=== PATIENT | male | born 1970 | race Caucasian/White ===

== ENCOUNTER 2017-10-20 16:24 | Emergency (ER) | payer MEDICAID, OTHER ==
[2017-10-20 16:32] VITALS: BP 149/88
[2017-10-20] MEDS ORDERED: AMOX/CLAV 875 MG/125 MG TABLET PO STA (16:57)
[2017-10-20] MEDS ORDERED: BUFFERED LIDOCAINE 10 ML SYRINGE SUBQ STA (16:57)
--- NOTE | 2017-10-20 17:00 | ED Physician Documentation ---
PD HPI HEAD INJURY - Stated complaint Stated Complaint: FACIAL LAC - Chief complaint Chief Complaint: Laceration - History obtained from History obtained from: Patient - History of Present Illness Mechanism of head injury: Other (He is not up-to-date on tetanus and and refuses tetanus. He was making a wood bowl and a piece of wood shattered and kind of stabbed him in the face and he has a laceration with some. No other injuries.) Review of Systems Constitutional: reports: Reviewed and negative Throat: reports: Reviewed and negative Cardiac: reports: Reviewed and negative PD PAST MEDICAL HISTORY - Past Medical History Past Medical History: No - Past Surgical History Past Surgical History: Yes Ortho: Other - Present Medications Home Medications: Ambulatory Orders Medication Instructions Recorded Confirmed Amox/Clav 875/125 [Augmentin] 1 each PO Q12H #14 tablet 10/20/17 - Allergies Allergies/Adverse Reactions: Allergies Allergy/AdvReac Type Severity Reaction Status Date / Time No Known Drug Allergies Allergy Verified 10/20/17 17:04 - Social History Does the pt smoke?: No Smoking Status: Never smoker Does the pt drink ETOH?: Yes ETOH Use: Liquor Does the pt have substance abuse?: No - Immunizations Immunizations are current?: Yes - POLST Patient has POLST: No PD ED PE NORMAL - Vitals Vital signs reviewed: Yes - General General: Alert and oriented X 3, No acute distress - HEENT HEENT: Other (On the right upper lip there is a through and through laceration just above the vermilion border and 8. #7 are slightly loose with overlying gingival laceration but not very loose.) - Neuro Neuro: Alert and oriented X 3, Normal speech - Psych Psych: Normal mood, Normal affect Results - Vitals Vitals: Vital Signs - 24 hr 10/20/17 16:30 Temperature 36.2 C L Heart Rate 76 Respiratory 17 Rate Blood Pressure 149/88 H O2 Saturation 98 Oxygen O2 Source Room air Procedures - Laceration (location) lip through and through Length in cm: 1 Wound type: Linear Neurovascular status: Sensory intact Anesthesia: Lidocaine 1%, With bicarb Wound Preparation: Irrigated copiously NS Deep layer closure: Vicryl, size #-0 - enter number (5-0), # sutures - enter number (2) Skin layer closure: Nylon, Interrupted, Size #-0 - enter number (5-0), Sutures - enter # (3) Other: Patient tolerated well, No complications, Neurovascular intact Complexity: Simple Departure - Departure Disposition: 01 Home, Self Care Clinical Impression: Facial laceration Qualifiers: Encounter type: initial encounter Qualified Code(s): S01.81XA - Laceration without foreign body of other part of head, initial encounter Dental injury Qualifiers: Encounter type: initial encounter Qualified Code(s): S09.93XA - Unspecified injury of face, initial encounter Condition: Good Record reviewed to determine appropriate education?: Yes Instructions: Trauma Dental, ED Laceration Facial Sutr Tape Prescriptions: Amox/Clav 875/125 [Augmentin] 1 each PO Q12H #14 tablet Comments: Follow-up with your dentist regarding your loose teeth, liquid diet until then. Come back for any signs of infection which would include: Redness, swelling, drainage, increased pain, or fevers. Follow-up with your physician in 6 days for suture removal. Your blood pressure was elevated today on check into the emergency department. This does not mean that you have hypertension, it is a common phenomenon to come to the emergency department and have elevated blood pressure. I recommend that you see your primary care physician within the week to have it rechecked when you are feeling better.
== END 2017-10-20 17:28 | disposition home or self-care (01) ==
LOC: ED 16:24
DX: S01.511A Laceration without foreign body of lip, initial encounter (principal); S01.512A Laceration without foreign body of oral cavity, initial encounter; S09.8XXA Other specified injuries of head, initial encounter; W20.8XXA Other cause of strike by thrown, projected or falling object, initial encounter; Y93.89 Activity, other specified; R03.0 Elevated blood-pressure reading, without diagnosis of hypertension
CPT/HCPCS: 12011; 99283; A9270

== ENCOUNTER 2018-07-16 15:26 | Outpatient (CLI) | payer MEDICAID ==
--- NOTE | 2018-07-16 22:37 | XRAY Report ---
Reason: SHOULDER JOINT PAIN, LEFT Procedure Date: 07/16/2018 Accession Number: [id number] / [id number] Procedure: XRS - Shoulder 2 View LT CPT Code: FULL RESULT: EXAM: LEFT SHOULDER RADIOGRAPHY EXAM DATE: 07/16/2018 03:43 PM. CLINICAL HISTORY: SHOULDER JOINT PAIN, LEFT. COMPARISON: None. TECHNIQUE: 3 views. FINDINGS: Bones: Normal. No fracture or bone lesion. Joints: There is joint space narrowing and periarticular irregularity at the left acromioclavicular joint. Glenohumeral joint spacing and alignment are within normal limits. Soft tissues: The visualized hemithorax is unremarkable. No soft tissue swelling. IMPRESSION: 1. No evidence of fracture or dislocation. 2. There are mild to moderate degenerative changes at the left acromioclavicular joint. RADIA
== END 2018-07-16 15:27 | disposition home or self-care (01) ==
LOC: DI.S 15:26
PROVIDERS: ATTEND Internal Medicine
DX: M19.012 Primary osteoarthritis, left shoulder (principal)

== ENCOUNTER 2018-11-11 12:28 | Emergency (ER) | payer MEDICAID, OTHER ==
--- NOTE | 2018-11-11 14:09 | ED Physician Documentation ---
PD HPI UPPER EXT INJURY - Stated complaint Stated Complaint: RT ARM INJ/FELL OFF LADDER - Chief complaint Chief Complaint: Trauma Ext - History obtained from History obtained from: Patient, Family - History of Present Illness Location: Right, Arm Type of injury: Fall Where injury occurred: A house / apartment Timing - onset: Today Timing - duration: Minutes Timing - details: Abrupt onset, Still present Improved by: Rest, Immobilization Worsened by: Moving, Palpating Associated symptoms: No: Weakness, Numbness Contributing factors: No: Anticoagulated Similar symptoms before: Has not had sx before Recently seen: Not recently seen - Additonal information Additional information: Previously healthy 48-year-old male was putting together a spiral staircase when the staircase popped out from underneath him and he grabbed onto the landing to catch himself with his right arm and he felt a pull and pop in his right arm and he let go and fell. He was up about 3 steps when he fell and has not otherwise injured himself. He has now a deformity to the distal biceps and notes that it seems like he is able to move his arm okay with this. He has some pain associated with it but not horrible. 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 Review of Systems Constitutional: denies: Fever Cardiac: denies: Chest pain / pressure Respiratory: denies: Dyspnea, Cough GI: denies: Vomiting Musculoskeletal: reports: Extremity pain. denies: Neck pain, Back pain Neurologic: denies: Generalized weakness, Focal weakness, Numbness PD PAST MEDICAL HISTORY - Past Medical History Past Medical History: No - Past Surgical History Past Surgical History: Yes Ortho: Other - Present Medications Home Medications: Ambulatory Orders Medication Instructions Recorded Confirmed RX: Ibuprofen 11/11/18 - Allergies Allergies/Adverse Reactions: Allergies Allergy/AdvReac Type Severity Reaction Status Date / Time No Known Drug Allergies Allergy Verified 11/11/18 12:56 - Social History Does the pt smoke?: No Smoking Status: Never smoker Does the pt drink ETOH?: Yes Does the pt have substance abuse?: No - Immunizations Immunizations are current?: No Immunizations: TDAP >10years/unknown - POLST Patient has POLST: No PD ED PE NORMAL - General General: Alert and oriented X 3, No acute distress, Well developed/nourished - HEENT HEENT: Atraumatic, PERRL, EOMI - Respiratory Respiratory: No respiratory distress - Derm Derm: Normal color, Warm and dry, No rash - Extremities Extremities: Other (There is deformity to the distal arm consistent with a bicpes tendon rupture. The patient is able to flex against force with mild pain and he is able to move the forearm through a ROM without difficulty. Distal n/v is intact. There is an abrasion to the right forearm over the volar surface,. ) - Neuro Neuro: Alert and oriented X 3, director of medical services 2-12 intact, No motor deficit, No sensory deficit, Normal speech Eye Opening: Spontaneous Motor: Obeys Commands Verbal: Oriented GCS Score: 15 - Psych Psych: Normal mood, Normal affect Results - Vitals Vitals: Vital Signs - 24 hr 11/11/18 11/11/18 12:52 14:32 Temperature 36.1 C L Heart Rate 54 L 86 Respiratory 16 16 Rate Blood Pressure 112/82 H 111/72 O2 Saturation 100 99 Oxygen O2 Source Room air PD MEDICAL DECISION MAKING - ED course Complexity details: reviewed old records, considered differential, d/w patient, d/w family ED course: 48-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 He has cosmetic deformity consistent with the rupture. Dr. Cely Borges is consulted in the case and recommends splinting and follow-up in the clinic for consideration of surgery. Departure - Departure Disposition: 01 Home, Self Care Clinical Impression: Biceps tendon rupture, traumatic Condition: Stable Instructions: Biceps Tendonitis Distal Follow-Up: Halle Shook MD [Provider Admit Priv/Credential] - Discharge Date/Time: 11/11/18 14:32
[2018-11-11 14:32] VITALS: BP 111/72
== END 2018-11-11 14:32 | disposition home or self-care (01) ==
LOC: ED 12:28
DX: S46.211A Strain of muscle, fascia and tendon of other parts of biceps, right arm, initial encounter (principal); S50.811A Abrasion of right forearm, initial encounter; W17.89XA Other fall from one level to another, initial encounter; Y93.H3 Activity, building and construction; Y92.039 Unspecified place in apartment as the place of occurrence of the external cause
CPT/HCPCS: 99283

== ENCOUNTER 2018-11-19 06:06 | Day surgery (SDC) | payer OTHER ==
[2018-11-19] MEDS ORDERED: ceFAZolin 2 GM/50 ML 2 GM/50 ML BAG IV ONE (06:13)
[2018-11-19] MEDS ORDERED: LACTATED RINGERS 1,000 ML IV ONE (06:37)
[2018-11-19] MEDS ORDERED: BUPIVACAINE 0.25%-EPI 1:200000 PF 30 ML VIAL ONE (07:12)
--- NOTE | 2018-11-19 07:18 | ANESTHESIA ---
Pre-Anesthesia VS, & Labs - Diagnosis Right biceps rupture - Procedure Right biceps /tendon repair Vital Signs: Temp Pulse Resp BP Pulse Ox 36.6 C 64 18 140/87 H 100 11/19/18 06:20 11/19/18 06:20 11/19/18 06:20 11/19/18 06:20 11/19/18 06:20 Height 6 ft 2 in Weight (kg) 123.1 kg Body Mass Index 34.0 - NPO >8 hours Home Medications and Allergies Home Medications: Ambulatory Orders Acetaminophen [Tylenol] 650 mg PO Q6H PRN 11/19/18 Acetaminophen [Tylenol] 650 mg PO Q6H PRN 11/19/18 Allergies/Adverse Reactions: Allergies Allergy/AdvReac Type Severity Reaction Status Date / Time No Known Drug Allergies Allergy Verified 11/11/18 12:56 Anes History & Medical History - Anesthetic History Anesthesia Complications: reports: No previous complications Family history of Anesthesia Complications: Denies Family history of Malignant Hyperthermia: Denies - Medical History Cardiovascular: reports: None Pulmonary: reports: None Gastrointestinal: reports: None Urinary: reports: None Neuro: reports: None Musculoskeletal: reports: Chronic back pain Endocrine/Autoimmune: reports: None Blood Disorders: reports: None Skin: reports: None Smoking Status: Former smoker Psychosocial: reports: No issues indicated - Surgical History General: Appendectomy Eyes Ears Nose Throat (EENT): Tonsil/Adenoidectomy Orthopedic: Other Exam General: Alert Dental: WNL Mouth Opening: Greater than 4 Fingerbreadths Neck Mobility: Normal Mallampati classification: I Thyromental Distance: greater than 6 cm Respiratory: Lungs clear Cardiovascular: Regular rate Neurological: Normal speech Mental/Cognitive Status: Alert/Oriented X3 Cognitive Status: Within normal limits Plan Anesthesia Type: General Consent for Procedure(s) Verified and Reviewed: Yes Code Status: Attempt Resuscitation ASA classification: 2-Mild systemic disease Is this case an emergency?: No
[2018-11-19] MEDS ORDERED: BUPIVACAINE 0.25%-EPI 1:200000 PF 30 ML VIAL SUBQ ONE (08:14)
[2018-11-19] MEDS ORDERED: DEXAMETHASONE 4 MG/ML VIAL IVP ONE (08:18)
[2018-11-19] MEDS ORDERED: ONDANSETRON 4 MG/2 ML VIAL IVP ONE (08:18)
[2018-11-19] MEDS ORDERED: PROPOFOL 200 MG/20 ML VIAL IVP ONE (08:18)
[2018-11-19] MEDS ORDERED: fentaNYL 250 MCG/5 ML VIAL IVP ONE (08:18)
[2018-11-19] MEDS ORDERED: NEOSTIGMINE 1 MG/1 ML 10 ML MDV IVP ONE (08:18)
[2018-11-19] MEDS ORDERED: ROCURONIUM 50 MG/5 ML VIAL IVP ONE (08:18)
[2018-11-19] MEDS ORDERED: LIDOCAINE-MPF 2% 5 ML VIAL IM ONE (08:18)
[2018-11-19] MEDS ORDERED: ACETAMINOPHEN 1,000 MG/100 ML 100 ML IV ONE (08:18)
[2018-11-19] MEDS ORDERED: MIDAZOLAM 2 MG/2 ML VIAL IVP ONE (08:18)
[2018-11-19] MEDS ORDERED: GLYCOPYRROLATE 1 MG/5 ML VIAL IVP ONE (08:18)
[2018-11-19] MEDS ORDERED: ONDANSETRON 4 MG/2 ML VIAL IVP PRN (09:26)
[2018-11-19] MEDS ORDERED: oxyCODONE 5 MG TABLET PO PRN (09:26)
--- NOTE | 2018-11-19 09:39 | IMMEDIATE POSTOPERATIVE NOTE ---
Immediate Postoperative Note - Procedure Note Procedure Date: 11/19/18 Pre-Op Diagnosis: RIGHT DISTAL BICEPS AVULSION Procedure: RIGHT DISTAL BICEPS DEBRIDEMENT AND REPAIR Post-Op Diagnosis: SAME Primary Surgeon: Elvira CARPENTER MD Health Unit Clerk: NATHALIA Anesthesia Type: General LMA, Local Findings: ABOVE Complications: No complications Estimated Blood Loss (in cc): 25 Specimens and Cultures: ABOVE Plan of Care: PT TOLERATED PROCEDURE WELL. REMAINS NVID HAND /WRIST POST OP. TRANSFERRED TO IN STABLE CONDITION. WILL FOLLOW STD POST OP DISTAL BICEPS REPAIR PROTOCOL F/U 10-14 DAYS ORTHO OFFICE OR SOONER PRN
[2018-11-19] MEDS ORDERED: ONDANSETRON 4 MG/2 ML VIAL ONE (09:46)
[2018-11-19] MEDS ORDERED: HYDROmorphone 0.5 MG/0.5 ML SYRINGE ONE (09:48)
[2018-11-19] MEDS ORDERED: oxyCODONE 5 MG TABLET ONE (10:13)
[2018-11-19 11:22] VITALS: BP 132/75
--- NOTE | 2018-11-20 10:44 | OPERATIVE REPORT ---
DATE OF SERVICE: 11/19/2018 Physician: Kris Ambrocio MD SURGEON: Kris Ambrocio MD. POSTIE: None. ANESTHESIA PROVIDER: Jonh Sanchez CRNA. ANESTHESIA TYPE: General anesthesia LMA, as well as 30 mL 0.25% Marcaine with epinephrine. ESTIMATED BLOOD LOSS: Less than 25 mL. TOURNIQUET TIME: 42 minutes at 250 mmHg. FLUIDS: 800 mL lactated Ringer's. ORTHOPEDIC IMPLANTS: #5 FiberWire [employer], as well as [employer] biceps button titanium implant. 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 This was found by history and exam and confirmed by MRI. He was indicated for operative treatment. Please see risks, benefits, alternatives previously reviewed with the patient and the patient's in the clinic. This is again highlighted in the preoperative care unit. His questions are answered, he verbalizes understanding of the above and verbalizes the wish to proceed with operative treatment. Informed consent was given. PROCEDURE: On 11/19/2018, patient is identified in the preoperative care unit. He identifies his right elbow as the operative site; this is signed by the operating surgeon. Patient received preoperative weight-based IV antibiotics. He is brought to the operating room. General anesthesia is administered. He is placed in an anatomically comfortable and safe position, with the head, neck and extremities protected to avoid peripheral nerve stretch or compression. Patient's right upper extremity has a well-padded tourniquet placed high on the right arm, taking care to avoid encumbrance of the axilla. Patient's antecubital crease region and just distal to that is shaved mechanically, and then the right upper extremity is pre-scrubbed with chlorhexidine solution, and then prepped and draped in the usual sterile fashion. At this time, surgical pause identifies right distal biceps and right elbow as the operative site. At this point, Esmarch bandage is used to exsanguinate the limb, tourniquet is inflated, though deflated prior to closure. At this point, an incision is made distal to the antecubital crease, not crossing the crease. This is through the skin, and then spreading dissection is carried out. The lateral antebrachial cutaneous nerve is identified and protected and then spreading dissection carried out down towards the bicipital tuberosity of the radius. There is a good tract from proximal to distal, which makes this relatively easy to find, though there are very small bridging veins, which are cauterized appropriately. At this point, with supination and placement of small Hohmann levers, the bare area of the donor site of the bicipital tuberosity of the radius is identified. This is cleaned up, and then retractors are removed, and then attention is directed towards finding the proximal extent of the injury and the distal aspect of the biceps. At this point, blunt finger dissection is carried out proximally, and then hematoma is entered and evacuated, and then the distal biceps tendon is identified and delivered through the wound. The distal end of it is debrided and noted to be quite expanded, with some fibrinous tissue. This is sharply debrided and then ultimately sized to a size 8 mm. At this point, a #5 FiberWire is whip-stitched from distal to proximal, and then again distal, to achieve excellent capture of the distal biceps tendon. At this point, a biceps button is placed, such that it may be ultimately toggled once passed through the radius. This is set aside, and then attention is directed towards the bicipital tuberosity of the radius, again with appropriate retraction and protection of bridging veins and adjacent nerve. At this point, supination and appropriate trajectory of a spade-tipped guidewire, the first cortex is entered at initial proximal third of the bicipital tuberosity of the radius, though this is corrected to make the guide pin in the mid section of the bicipital tuberosity of the radius. Once the first cortex is entered, then repeat fluoroscopic image confirms improved position of the guide pin, and then the guidepin is brought just through the second cortex but not further. At this point, the proximal aspect is reamed to 8 mm, and this is copiously irrigated and evacuated of bony debris meticulously. At this point, the edges of the socket are rongeured, and the guide pin had been removed. At this point, the biceps is placed through the appropriate trajectory, so as to not tent any of the neurovascular structures, and then directly down to the biceps tuberosity. The titanium button is placed into the socket and then through the second cortex, pushed using the blunt end of the guide pin, it is allowed to toggle immediately on the second cortex, and then the biceps is toggled into place, alternatively pulling on each end of the FiberWire and flexing the elbow. Biceps is seated to approximately 8 to 10 mm until it stops, and then an arthroscopic knot pusher is used to tie a surgeon's knot and then reverse half hitches. Suture limbs are cut, the biceps is well fixed into this socket with range of motion of the elbow and good stability of the construct. At this point, the wound is copiously irrigated. The tourniquet is deflated. There is noted to be good hemostasis, and then repeat copious irrigation is performed, and then the skin is closed in a layered fashion using 0 Vicryl, 2-0 Vicryl, and then interrupted nylon suture. Skin is washed and dried, local anesthetic is infused; Xeroform dressing is applied, dry sterile dressing, and then Sof-Rol with the elbow at 90 degrees. Care is taken to avoid significant pressure on the antecubital crease. A Sof-Rol is placed from the hand all the way up to the arm, and a bulky Ash splint is placed with the elbow at 90 degrees and the forearm in neutral. Patient is placed in a sling. Patient tolerated the procedure well. Instrument and sponge counts are correct. Patient is transferred to recovery room in stable condition. The patient will follow standard postoperative right distal biceps debridement repair protocol. There are no intraprocedural complications. He will follow up in 10-14 days, or sooner on an as-needed basis, and notify us problems, questions, or worsening should arise. This is reviewed with the patient preoperatively and the patient's postoperatively. Postoperatively, patient's was contacted in the waiting room, case was discussed, fluoroscopic images are reviewed. PREOPERATIVE DIAGNOSIS: Right distal biceps rupture. POSTOPERATIVE DIAGNOSIS: Right distal biceps rupture. PROCEDURE: Right distal biceps debridement, repair. ADDITIONAL PROCEDURE: Right elbow three views mini C-arm fluoroscopic image interpretation. RADIOGRAPHIC INDICATIONS: Evaluate wire placement and ultimately implant and socket placement in the distal biceps repair. FINDINGS: Radiographic findings demonstrate multiple views of an elbow with pronation and supination demonstrating radiolucency consistent with a drilled socket in the bicipital tuberosity of the radius, with correlating implant consistent with metallic button on the opposite side of the radius. There is an image of a guidepin, which is the initial iteration of the guide pin, at the junction of the middle and proximal third of the bicipital tuberosity of the radius. RADIOGRAPHIC IMPRESSION: As above. TD: 11/20/2018 09:04 MTDD
== END 2018-11-19 06:07 | disposition home or self-care (01) ==
LOC: SDS 06:06
PROVIDERS: ATTEND Orthopaedic Surgery Sports Medicine
PROC: 0LM30ZZ Reattachment of Right Upper Arm Tendon, Open Approach (ICD-10-PCS; principal; 2018-11-19 07:30)
DX: S46.211A Strain of muscle, fascia and tendon of other parts of biceps, right arm, initial encounter (principal); X50.1XXA Overexertion from prolonged static or awkward postures, initial encounter; Y93.H3 Activity, building and construction; Y92.61 Building [any] under construction as the place of occurrence of the external cause; Y99.0 Civilian activity done for income or pay; F17.200 Nicotine dependence, unspecified, uncomplicated; G89.29 Other chronic pain; M54.5 Low back pain; Z72.89 Other problems related to lifestyle
CPT/HCPCS: 24342; A9270; C1713; J0131; J0690; J1170; J3010; J7120

== ENCOUNTER 2019-06-07 15:56 | Emergency (ER) | payer OTHER ==
[2019-06-07 16:02] VITALS: BP 161/92
[2019-06-07] MEDS ORDERED: TETANUS/DIPHTHERIA/PERTUSSIS 0.5 ML SYRINGE IM ONE (16:07)
[2019-06-07] MEDS ORDERED: LIDOCAINE 1%-EPI 1:100000 20 ML MDV SUBQ STA (16:07)
[2019-06-07] MEDS ORDERED: BACITRACIN OINT TOP STA (16:43)
--- NOTE | 2019-06-07 16:45 | ED Physician Documentation ---
PD HPI UPPER EXT INJURY - Stated complaint Stated Complaint: L HAND LAC - Chief complaint Chief Complaint: Laceration - History obtained from History obtained from: Patient - History of Present Illness Location: Left, Finger (index and middle) Type of injury: Other (table saw injury) Where injury occurred: Home Timing - onset: How many minutes ago (30) - Additonal information Additional information: The patient is a 49-year-old male who cut his left index and middle fingers on a table saw at home about 30 minutes prior to arrival. He is right-hand dominant. His last tetanus booster was more than 10 years ago. Review of Systems Skin: reports: Laceration (s) (Left index and middle fingers.) Musculoskeletal: reports: Extremity pain (Left index and middle fingers.) Neurologic: denies: Focal weakness, Numbness PD PAST MEDICAL HISTORY - Past Medical History Cardiovascular: None Respiratory: None Neuro: None Endocrine/Autoimmune: None GI: None : None HEENT: None Psych: None Musculoskeletal: Chronic back pain Derm: None - Past Surgical History Past Surgical History: Yes General: Appendectomy Ortho: Other HEENT: Tonsil/Adenoidectomy - Present Medications Home Medications: Ambulatory Orders Medication Instructions Recorded Confirmed Acetaminophen [Tylenol] 650 mg PO Q6H PRN 11/19/18 11/19/18 Hydrocodone/Acetaminophen 1 - 2 each PO Q6H PRN #20 tablet 06/07/19 [Hydrocodon-Acetaminophen 5-325] - Allergies Allergies/Adverse Reactions: Allergies Allergy/AdvReac Type Severity Reaction Status Date / Time No Known Drug Allergies Allergy Verified 11/11/18 12:56 - Social History Does the pt smoke?: No Smoking Status: Never smoker Does the pt drink ETOH?: Yes Does the pt have substance abuse?: No - Immunizations Immunizations are current?: No Immunizations: TDAP >10years/unknown - POLST Patient has POLST: No PD ED PE NORMAL - Vitals Vital signs reviewed: Yes (Hypertensive) - General General: Alert and oriented X 3, Well developed/nourished - HEENT HEENT: Atraumatic - Respiratory Respiratory: No respiratory distress - Derm Derm: No rash - Extremities Extremities: Other (There is a 1 cm laceration at the tip of the left index finger. There is a 2 cm laceration on the volar tip of the left middle finger, with evulsion of the skin from the tip of the finger. There is no involvement of the nailbed, and no exposure of the bony tuft of the fingers. He has full flexion and extension at the DIP, PIP, and MCP joints. Distal neurovascular is intact.) Results - Vitals Vitals: Vital Signs - 24 hr 06/07/19 15:59 Temperature 36.5 C Heart Rate 63 Respiratory 14 Rate Blood Pressure 161/92 H O2 Saturation 100 Oxygen O2 Source Room air Procedures - Laceration (location) index finger Length in cm: 1 Wound type: Linear Neurovascular status: Sensory intact, Motor intact, Vascular intact Anesthesia: Lidocaine 1% with epi Wound Preparation: Hibiclens, Irrigated copiously NS, Wound explored, To the base. No: FB identified Skin layer closure: Nylon, Interrupted, Size #-0 - enter number (5), Sutures - enter # (2) Other: Patient tolerated well, No complications, Neurovascular intact, Dressing applied, Tetanus booster given Complexity: Simple left middle finger Length in cm: 2 Wound type: Irregular, Into subcut fat Neurovascular status: Sensory intact, Motor intact, Vascular intact Anesthesia: Lidocaine 1% with epi Wound Preparation: Hibiclens, Irrigated copiously NS, Wound explored, To the base. No: FB identified Skin layer closure: Nylon, Interrupted, Size #-0 - enter number (5), Sutures - enter # (2) Other: Patient tolerated well, No complications, Neurovascular intact, Dressing applied, Tetanus booster given Complexity: Simple PD MEDICAL DECISION MAKING - ED course Complexity details: re-evaluated patient, considered differential, d/w patient, d/w family ED course: The patient's presentation is significant for table saw injuries to the tips of his left index and middle fingers, with avulsion of the skin surface from the tip of the left middle finger. There is no clinical evidence of bony involvement. The wounds were thoroughly cleaned after local anesthetic with 1% lidocaine. The wound of the index finger was repaired with 5-0 nylon simple sutures. The wound of the middle finger was partially repaired with 5-0 nylon simple sutures. The avulsed portion was not amenable to suture repair. Antibiotic ointment, nonadhesive dressing, and tube gauze was applied. Tetanus booster was administered. I discussed with the patient and his the expected course of injury, appropriate wound care, timing for suture removal, as well as potentially worrisome signs or symptoms that should prompt reevaluation in the emergency department. Departure - Departure Disposition: 01 Home, Self Care Clinical Impression: Finger laceration Qualifiers: Encounter type: initial encounter Finger: middle finger Damage to nail status: without damage Foreign body presence: without foreign body Laterality: left Qualified Code(s): S61.213A - Laceration without foreign body of left middle finger without damage to nail, initial encounter Condition: Stable Instructions: ED Laceration Hand Follow-Up: Boston Montero MD [Credentialed Staff Provider] - Prescriptions: Hydrocodone/Acetaminophen [Hydrocodon-Acetaminophen 5-325] 1 - 2 each PO Q6H PRN #20 tablet PRN Reason: pain Comments: Keep your left hand elevated as much the time as possible. You can use ibuprofen, up to 800 mg 3 times daily for anti-inflammatory effect. He can use Vicodin as prescribed if needed for pain. Change the wound dressing daily, and apply new antibiotic ointment. Follow-up for suture removal in about 12-14 days. Return to the emergency department if any sign of infection, or otherwise worsening symptoms Discharge Date/Time: 06/07/19 16:54
== END 2019-06-07 16:54 | disposition home or self-care (01) ==
LOC: ED 15:56
DX: S61.211A Laceration without foreign body of left index finger without damage to nail, initial encounter (principal); S61.213A Laceration without foreign body of left middle finger without damage to nail, initial encounter; W31.2XXA Contact with powered woodworking and forming machines, initial encounter; Y93.89 Activity, other specified; Y92.009 Unspecified place in unspecified non-institutional (private) residence as the place of occurrence of the external cause; Z23 Encounter for immunization
CPT/HCPCS: 12002; 90471

== ENCOUNTER 2021-04-27 11:18 | Outpatient (CLI) | payer BC ==
--- NOTE | 2021-04-27 13:39 | XRAY Report ---
PROCEDURE: Cervical Spine 2 View INDICATIONS: NECK PX CHRONIC TECHNIQUE: 3 view(s) of the cervical spine were acquired. COMPARISON: None. FINDINGS: Bones: No fractures or dislocations to the T1 level. The lateral masses of C1 appear intact on the odontoid view. No suspicious bony lesions. Mild cervical spondylosis with bilateral cervical facet arthropathy. Soft tissues: No prevertebral soft tissue swelling. IMPRESSION: Mild cervical spondylosis. No evidence acute bony abnormality of the cervical spine. If clinical suspicion and/or symptoms persist, further assessment with repeat plain films or advanced imaging (e.g., CT, MRI, or bone scan) may be helpful for further assessment. Reviewed by: Keo Espino MD on 04/27/2021 1:38 PM PDT Approved by: Keo Espino MD on 04/27/2021 1:38 PM PDT Station ID: [id number]
--- NOTE | 2021-04-27 13:42 | XRAY Report ---
PROCEDURE: Knee 3 View LT INDICATIONS: KNEE PX CHRONIC TECHNIQUE: 3 views of the left knee(s) were acquired. COMPARISON: None. FINDINGS: Bones: No fractures or dislocations. No suspicious bony lesions. Mild degenerative osteophytes. Mi ld joint space loss. Soft tissues: Moderate joint effusion. No suspicious soft tissue calcifications. IMPRESSION: Mild degenerative arthritis. Knee joint effusion. No evidence acute bony abnormality of the left knee. If clinical suspicion and/or symptoms persist, further assessment with repeat plain films or advanced imaging (e.g., CT, MRI, or bone scan) may be helpful for further assessment. Reviewed by: Keo Espino MD on 04/27/2021 1:40 PM PDT Approved by: Keo Espino MD on 04/27/2021 1:40 PM PDT Station ID: [id number]
== END 2021-04-27 11:19 | disposition home or self-care (01) ==
LOC: DI.S 11:18
PROVIDERS: ATTEND Physician Assistant
DX: M47.812 Spondylosis without myelopathy or radiculopathy, cervical region (principal); M17.12 Unilateral primary osteoarthritis, left knee; M25.462 Effusion, left knee

== ENCOUNTER 2023-01-09 07:32 | Outpatient (CLI) | payer BC ==
[2023-01-09 14:24] LABS: BASOPHILS % (AUTO) 0.2 %; EOSINOPHILS # (AUTO) 0.1 10^3/uL (0.0-0.7); EOSINOPHILS % (AUTO) 2.7 %; HCT - HEMATOCRIT 44.5 % (42.0-52.0); HGB - HEMOGLOBIN 14.3 g/dL (14.0-18.0); LYMPHOCYTES # (AUTO) 1.6 10^3/uL (1.5-3.5); LYMPHOCYTES % (AUTO) 38.3 %; MEAN CORPUSCULAR HEMOGLOBIN 30.5 pg (27.0-31.0); MEAN CORPUSCULAR HGB CONC 32.1 g/dL (32.0-36.0); MEAN CORPUSCULAR VOLUME 94.9 fL (80.0-94.0); MEAN PLATELET VOLUME 10.1 fL (7.4-11.4); MONOCYTES # (AUTO) 0.4 10^3/uL (0.0-1.0); MONOCYTES % (AUTO) 9.1 %; NEUTROPHILS % (AUTO) 49.5 %; PLT - PLATELET COUNT 233 10^3/uL (130-450); RED BLOOD COUNT 4.69 10^6/uL (4.70-6.10); RED CELL DISTRIBUTION WIDTH 13.4 % (12.0-15.0); WHITE BLOOD COUNT 4.1 x10^3/uL (4.8-10.8)
[2023-01-09 14:52] LABS: THYROID STIMULATING HORMONE 2.18 uIU/mL (0.34-5.60)
[2023-01-09 15:04] LABS: ALBUMIN 4.3 g/dL (3.2-5.5); ALBUMIN/GLOBULIN RATIO 1.5 (1.0-2.2); ALKALINE PHOSPHATASE 43 IU/L (42-121); ALT ALANINE AMINOTRANSFERASE 22 IU/L (10-60); AST ASPARTATE AMINOTRANSFERASE 22 IU/L (10-42); BILIRUBIN,TOTAL 0.8 mg/dL (0.2-1.0); BUN - BLOOD UREA NITROGEN 19 mg/dL (6-20); CALCIUM 9.5 mg/dL (8.5-10.3); CARBON DIOXIDE - CO2 31 mmol/L (21-32); CHLORIDE 106 mmol/L (101-111); CHOL/HDL RATIO 3.8 (<5.0); CHOLESTEROL 261 mg/dL; CREATININE 1.1 mg/dL (0.6-1.2); GFR - MDRD 71 (>89); GLUCOSE 91 mg/dL (70-100); HDL CHOLESTEROL 68 mg/dL; LDL CHOLESTEROL,CALCULATED 176 mg/dL; LDL/HDL RATIO 2.6 (<3.6); POTASSIUM 4.4 mmol/L (3.5-5.0); SODIUM 142 mmol/L (135-145); TOTAL PROTEIN 7.2 g/dL (6.7-8.2); TRIGLYCERIDES 84 mg/dL; VLDL CHOLESTEROL 17 mg/dL
== END 2023-01-09 07:33 | disposition home or self-care (01) ==
LOC: LAB.S 07:32
PROVIDERS: ATTEND Registered Nurse
DX: Z13.228 Encounter for screening for other metabolic disorders (principal); Z13.220 Encounter for screening for lipoid disorders; Z12.5 Encounter for screening for malignant neoplasm of prostate; Z13.29 Encounter for screening for other suspected endocrine disorder; Z13.0 Encounter for screening for diseases of the blood and blood-forming organs and certain disorders involving the immune mechanism
CPT/HCPCS: 36415; 80053; 80061; 83721; 84153; 84443; 85025

== ENCOUNTER 2023-01-09 16:28 | Outpatient (CLI) | payer BC ==
--- NOTE | 2023-01-09 16:51 | XRAY Report ---
PROCEDURE: Hand 2 View RT INDICATIONS: INJURY OF RIGHT HAND TECHNIQUE: 2 views of the right hand acquired. COMPARISON: None FINDINGS: Bones: No fractures or dislocations. No suspicious bony lesions. No significant degenerative change is seen. Soft tissues: No suspicious soft tissue calcifications. IMPRESSION: No evidence for acute osseous abnormality involving the right hand. Reviewed by: Ruiz Leach MD on 01/09/2023 4:49 PM PDT Approved by: Ruiz Leach MD on 01/09/2023 4:49 PM PDT Station ID: [id number]
== END 2023-01-09 16:29 | disposition home or self-care (01) ==
LOC: DI.S 16:28
PROVIDERS: ATTEND Registered Nurse
DX: S69.91XA Unspecified injury of right wrist, hand and finger(s), initial encounter (principal); M79.89 Other specified soft tissue disorders; Z13.228 Encounter for screening for other metabolic disorders; Z13.220 Encounter for screening for lipoid disorders; Z12.5 Encounter for screening for malignant neoplasm of prostate; Z13.29 Encounter for screening for other suspected endocrine disorder; Z13.0 Encounter for screening for diseases of the blood and blood-forming organs and certain disorders involving the immune mechanism
CPT/HCPCS: 36415; 80053; 80061; 83721; 84153; 84443; 85025

== ENCOUNTER 2023-07-02 08:00 | Outpatient (CLI) | payer BC | END 2023-07-02 23:59 | disposition home or self-care (01) | LOC: LAB.R 08:00 | PROVIDERS: ATTEND Physician Assistant | DX: L08.9 Local infection of the skin and subcutaneous tissue, unspecified (principal); S60.312A Abrasion of left thumb, initial encounter | CPT/HCPCS: 87070; 87205 ==

== ENCOUNTER 2023-08-02 08:00 | Outpatient (CLI) | payer BC | END 2023-08-02 23:59 | disposition home or self-care (01) | LOC: LAB.S 08:00 | PROVIDERS: ATTEND Physician Assistant | DX: L72.3 Sebaceous cyst (principal) | CPT/HCPCS: 87070; 87205 ==